=== PATIENT | male | born 1990 | race Two or more races ===

== ENCOUNTER 2024-11-17 10:53 | Emergency (ER) | payer SELFPAY ==
[2024-11-17 11:35] VITALS: BP 130/72; PULSE 63; RESP 18; TEMP 36.7; O2SAT 98; BMI 27.3
--- NOTE | 2024-11-17 11:46 | PD.EDWOUND ---
ED Wound/Laceration-RME/HPI General Chief Complaint: Wound/Laceration Stated Complaint: LEFT FINGER LACERATION Time Seen by Provider: 11/17/24 11:42 Arrival date/time: 34-year-old M presents significant laceration. Thank. Patient was clipping and trimming some Mode of arrival: ambulatory Limitations: no limitations RME / HPI Onset (ago): hour(s) Extremity Location: Left: hand (Digital number 4 left [address].) Place: work Patient tetanus UTD: No Context: accidental Associated symptoms: pain Related Data Previous Rx's ?Medication ?Instructions ?Recorded ibuprofen 600 mg tablet 600 mg PO TID PRN pain #30 tabs 11/17/24 Allergies Allergy/AdvReac Type Severity Reaction Status Date / Time No Known Allergies Allergy Verified 11/17/24 10:56 Review of Systems Constitutional Constitutional: Reports system reviewed and no additional complaints, except as documented and Reports as per HPI Respiratory Respiratory: Reports system reviewed and no additional complaints, except as documented Musculoskeletal Musculoskeletal: Reports system reviewed and no additional complaints, except as documented and Reports as per HPI Comments: Left hand digit #4 ventral aspect. Past Medical History Social History SMOKING STATUS: Never smoker ED Exam General Limitations: Present no limitations General appearance: Present alert and in no apparent distress Head Head exam: Present atraumatic Eye Eye exam: Present normal appearance, PERRL and EOMI ENT ENT exam: Present normal exam, normal oropharynx and mucous membranes moist Neck Neck exam: Present normal inspection, full ROM and trachea midline Chest Chest inspection: Present normal inspection and symmetric chest wall rise Respiratory Respiratory exam: Present normal lung sounds bilaterally Cardiovascular Cardiovascular exam: Present regular rate, normal rhythm and normal heart sounds Abdominal Exam Abdominal exam: Present soft and normal bowel sounds Extremities Exam Extremities exam: Present normal inspection and full ROM Back Exam Back exam: Present normal inspection and full ROM Neurological Exam Neurological exam: Present alert, oriented X3 and CN II-XII intact Psychiatric Psychiatric exam: Present normal affect and normal mood Skin Skin exam: Present warm, dry, intact and normal color Expanded Skin Exam Type of lesion: Present laceration Other Other exam information: Left hand ventral aspect lesion #4 positive for a 1.5 cm laceration somewhat superficial. There is no apparent tendon involvement, neurovascular is intact. Patient retains full range of motion of all digits of the left hand. There is no apparent foreign body seen. Course Quality Measures none Orders Category Date Time Status Set Up Suture Tray STAT Care 11/17/24 11:42 Active Wound Care NOW Care 11/17/24 11:42 Active Lidocaine 1% 20 ml [Xylocaine 1% 20 ML] Med 11/17/24 11:42 Discontinued 20 ml INFL X1 ONE TET,DIP/PERT AC (Adult)-Tdap [Boostrix Adult (Tdap) Med 11/17/24 11:42 Discontinued Vacc] 0.5 ml IMI .ONCE ONE Vital Signs Vital signs: Vital Signs Temperature 98.0 F 11/17/24 11:35 Pulse Rate 63 11/17/24 11:35 Respiratory Rate 18 11/17/24 11:35 Blood Pressure 130/72 11/17/24 11:35 Pulse Oximetry (%) 98 11/17/24 11:35 Oxygen Delivery Method Room Air 11/17/24 11:35 Pulse ox 98% room air Procedures -ED Laceration Laceration 1: Site: upper extremity and hand Side (If applicable): left Size (cm): 2 Description: linear Depth: simple, single layer Local Anesthetic: lidocaine 1% Amount of anesthesia used (mL): 5 Pre-repair: irrigated extensively Skin layer closed with: nylon Size (cm): 4-0 Number of sutures: 2 Technique: simple, interrupted Wound / Laceration MDM Narrative MDM Narrative:: Percent lidocaine degenerative for the left hand received a nerve block. Wound was irrigated with normal saline. Patient was then sutured with 2 sutures of 4-0 nylon. The wound will be dressed. Patient will also receive Tdap and he is to have a 2-day wound check. Patient discharged in no apparent distress Patient data External records reviewed:: None Clinical information provided by:: patient Social determinants that could affect healthcare access:: none Patient has the following chronic illnesses:: None How is presenting disease/condition affected by chronic disease/condition?: caused by (Accidental laceration) Evaluation data The following diagnostics were reviewed and interpreted by me:: other (specify) (NA) Lab and/or radiology exams considered but not ordered:: None Interpretation Summary: None Medications / Prescriptions Medications or Prescriptions considered but not ordered:: Ibuprofen 600 mg to be consumed 1 p.o. every 8 hours as needed pain 30 Medication administrations:: Medication Administration History Discontinued Medications Diphtheria/Tetanus/Acell Pertussis (Diphth,Pertuss(Acell),Tet Vac 0.5 Ml Syr- Adult) 0.5 ml IMi .ONCE ONE Stop: 11/17/24 11:43 Last Admin: 11/17/24 11:50 Dose: 0.5 ml Documented By: DO Lidocaine HCl (Lidocaine Hcl 1% 20 Ml Vial) 20 ml INFL X1 ONE Stop: 11/17/24 11:43 Last Admin: 11/17/24 11:52 Dose: 3 ml Documented By: DO Comments: used by provider Given Consultations Consultation(s) initiated? (list below): No Diagnosis Wound Differential Diagnosis: laceration Most likely diagnosis given after review of the tests above:: Laceration Admission Indicated Admission indicated?: not indicated Admission Request Was there a request for admission?: No Disposition Plan Disposition Plan: Discharge Discharge Attestation Discharge Attestation: The patient and all family members were given an opportunity to ask questions and understood the discharge instructions. Discharge instructions specifically effects, indications for sooner follow up or return to the emergency department, and the expected course of current diagnosis. Patient condition: Stable Discharge Plan Plan Patient Disposition: HOME (Self Care) Disposition Comment: Stable Prescriptions/Referrals Prescriptions/Med Rec: New ibuprofen 600 mg tablet 600 mg PO TID PRN (Reason: pain) Qty: 30 0RF Problem List Clinical Impression: Laceration Patient/Caregiver Discharge Instructions Additional Instructions: Follow-up with primary care doctor in 24 to 48 hours for reevaluation Please have sutures removed in 10 days Primary concerns return immediately Print Language: Togolese Stand Alone Forms: Sil Award Info., Work/School Release, Patient Portal Info Letter Vaccines Vaccines Given During Stay: TDaP CARLOS/HANH Supervising Physician CARLOS/HANH Supervising Physician: Ilan
[2024-11-17] MEDS: DIPHTH,PERTUSS(ACELL),TET VAC 0.5 ML SYR- ADULT IMi (11:50)
[2024-11-17] MEDS: LIDOCAINE HCL 1% 20 ML VIAL INFL (11:52)
== END 2024-11-17 13:06 | disposition home or self-care (01) ==
LOC: SERX 13:04
PROVIDERS: Emergency Provider Emergency Medicine
DX: S61.215A Laceration without foreign body of left ring finger without damage to nail, initial encounter (principal); X58.XXXA Exposure to other specified factors, initial encounter; Z23 Encounter for immunization
CPT/HCPCS: 12001; 90471; 90715; 99283; J3490